=== PATIENT | male | born 1965 | race Caucasian/White ===

== ENCOUNTER 2016-12-31 05:52 | Day surgery (SDC) | payer BC ==
[2016-12-29 09:12] LABS: HEMATOCRIT 47.3 % (39.2-51.8); HEMOGLOBIN 16.5 g/dL (13.7-18.0); WHITE BLOOD COUNT 5.3 x10^3/uL (3.4-10)
[2016-12-29 09:24] LABS: ASPARTATE AMINO TRANSFERASE 15 U/L (15-37); BLOOD UREA NITROGEN 13 mg/dL (7-18)
[~2016-12-31] VITALS: Ht 172.7 cm; Wt 95.9 kg
[~2016-12-31 05:52] MED LIST: CETI10CA PO; CLIN40CR2 TP; FLUT9.9S NAS; OMEP-110 PO
[2016-12-31 07:07] VITALS: BP 148/96
[2016-12-31] MEDS ORDERED: LACTATED RINGERS 1,000 ML IV SCH (07:14)
[2016-12-31] MEDS ORDERED: FENTANYL PF 100 MCG/2ML ONE ×3 (07:26→09:28)
[2016-12-31] MEDS ORDERED: MIDAZOLAM 1 MG/ML, 2ML ONE (07:27)
[2016-12-31] MEDS ORDERED: PROPOFOL 10 MG/ML, 20ML ONE (07:28)
[2016-12-31] MEDS ORDERED: ROCURONIUM 10 MG/ML,10ML ONE (07:28)
[2016-12-31] MEDS ORDERED: NEOSTIGMINE 1 MG/ML, 10ML ONE (07:29)
[2016-12-31] MEDS ORDERED: CEFOTETAN PMX 2GM/50ML 50 ML ONE (08:01)
[2016-12-31] MEDS ORDERED: GLYCOPYRROLATE 0.2MG/1ML, 5ML ONE (08:40)
[2016-12-31] MEDS ORDERED: BUPIVACAINE/PF 0.5% ONE (08:59)
[2016-12-31] MEDS ORDERED: HYDROmorphone 1 MG/ML, 1ML IV PRN (09:00)
[2016-12-31] MEDS ORDERED: PROMETHAZINE 25 MG/ML, 1ML IV PRN (09:00)
[2016-12-31] MEDS ORDERED: ONDANSETRON 2MG/ML, 2ML IVPush PRN (09:00)
[2016-12-31] MEDS ORDERED: hydrALAzine 20 MG/ML, 1ML IV PRN (09:00)
[2016-12-31] MEDS ORDERED: MEPERIDINE/PF 25MG/0.5ML IVPush PRN (09:00)
[2016-12-31] MEDS ORDERED: OXYcodone 5 MG/5 ML ORAL.SOL UDC PO PRN (09:00)
[2016-12-31] MEDS ORDERED: ACETAMINOPHEN 325 MG TABLET PO PRN (09:00)
[2016-12-31] MEDS ORDERED: OXYcodone 5 MG/5 ML ORAL.SOL UDC ONE (09:28)
[2016-12-31] MEDS ORDERED: ACETAMINOPHEN 650 MG/20.3 ML UDC ONE (09:28)
[2016-12-31] MEDS: FENTANYL PF 100 MCG/2ML IV PRN ×2 (09:31→09:46)
[2016-12-31] MEDS ORDERED: LABETALOL 5MG/ML, 20ML ONE (09:54)
[2016-12-31] MEDS: LABETALOL 5MG/ML, 20ML IV PRN ×2 (09:57→10:03)
== END 2016-12-31 11:30 ==
LOC: OUT 05:52
PROVIDERS: ATTEND Surgery
DX: K64.2 Third degree hemorrhoids (principal); K61.1 Rectal abscess; K64.4 Residual hemorrhoidal skin tags; K21.9 Gastro-esophageal reflux disease without esophagitis; Z98.890 Other specified postprocedural states; Z72.89 Other problems related to lifestyle
CPT/HCPCS: 36415; 46260; 80053; 85025; 88304; 88305; 93005; J2250; J2704; J2710; J3010; J3490; J7120; S0074